=== PATIENT | female | born 2005 | race Caucasian/White ===

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

== ENCOUNTER 2023-07-26 18:51 | Emergency (ER) | payer BC | END 2023-07-26 19:35 | disposition home or self-care (01) | LOC: JD.ED 18:51 | DX: I88.0 Nonspecific mesenteric lymphadenitis (principal); Z79.899 Other long term (current) drug therapy | CPT/HCPCS: 99283 ==